=== PATIENT | female | born 1975 | race African-American/Black ===

== ENCOUNTER 2019-02-06 17:52 | Emergency (ER) | payer MEDICAID ==
[~2019-02-06] VITALS: Ht 162.6 cm; Wt 85.7 kg
--- NOTE | 2019-02-06 18:10 | NUR ---
BIB FAMILY C/O MIDSTERNAL CHEST PAIN RADIATES TO LEFT CHEST SINCE THIS MORNING. PATIENT A/OX4, BREATHING EVEN AND UNLABORED, NO SOB NOTED, FAMILY AT BEDSIDE. 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
[2019-02-06] MEDS ORDERED: KETOROLAC TROMETHAMINE 15 MG/ML VIAL ONE ×2 (18:18→19:13)
[2019-02-06 18:19] LABS: BASOPHILS % (AUTO) 0.6 % (0.0-2.0); EOSINOPHILS % (AUTO) 2.9 % (0.0-6.0); HEMATOCRIT 35 % (33-45); LYMPHOCYTES # (AUTO) 2.2 /CMM (0.8-4.8); LYMPHOCYTES % (AUTO) 33.8 % (20.0-44.0); MEAN CORPUSCULAR HGB CONC 34 g/dl (31.0-36.0); MEAN CORPUSCULAR VOLUME 91 fL (82-100); MONOCYTES # (AUTO) 0.7 /CMM (0.1-1.30); MONOCYTES % (AUTO) 10.6 % (2.0-12.0); NEUTROPHILS # (AUTO) 3.3 /CMM (1.8-8.9); NEUTROPHILS % (AUTO) 52.1 % (43.0-81.0); PLATELET COUNT (AUTO) 168 /CMM (150-450); RED BLOOD CELL COUNT(AUTO) 3.87 MIL/uL (4.0-5.2); WHITE BLOOD COUNT (AUTO) 6.4 K/uL (4.3-11.0)
[2019-02-06] MEDS ORDERED: KETOROLAC TROMETHAMINE INJ 30 MG/ML VIAL IV ONE ×2 (18:30→19:30)
[2019-02-06 18:32] LABS: CALCIUM, SERUM 8.6 mg/dL (8.5-10.1); CARBON DIOXIDE 28 mmol/L (21-32); CHLORIDE 103 mmol/L (98-107); CREATININE 0.8 mg/dL (0.6-1.3); GLUCOSE 83 mg/dL (74-106); POTASSIUM 3.5 mmol/L (3.5-5.1); SODIUM SERUM 138 mmol/L (136-145); UREA NITROGEN, BLOOD 8 mg/dL (7-18)
--- NOTE | 2019-02-06 19:19 | NUR ---
PATIENT REQUESTED FOR PAIN MEDICATION PRIOR TO BEING DISCHARGE. DR CHING MADE AWARE AND ORDERED TORADOL. PATIENT'S VITALS STABLE, NO DISTRESS NOTED, NO SOB OBSERVED, FAMILY AT BEDSIDE. IV removed. Catheter intact and site benign. Pressure and 4x4 applied to site. No bleeding noted. Patient discharged to home in stable condition. Written and verbal after care instructions given. Patient verbalizes understanding of instruction.
[2019-02-06 19:21] VITALS: BP 140/90
== END 2019-02-06 19:22 | disposition home or self-care (01) ==
LOC: ER 17:52
DX: R07.81 Pleurodynia (principal); Z98.890 Other specified postprocedural states
CPT/HCPCS: 36415; 71045; 80048; 84484; 85025; 85378; 93005; 96374; 96376; 99284; J1885 ×2